=== PATIENT | male | born 1980 | race Caucasian/White ===

== ENCOUNTER 2018-10-19 08:13 | Inpatient (IN) | payer MEDICAID, OTHER ==
[2018-10-19] MEDS ORDERED: NORMAL SALINE 1000 ML 1,000 ML IV ONE (08:20)
[2018-10-19] MEDS ORDERED: LORAZEPAM INJ 2 MG/1 ML VIAL IV ONE ×3 (08:20→11:14)
--- NOTE | 2018-10-19 08:21 | ER Document Report ---
ED General - General Stated Complaint: ETOH Time Seen by Provider: 10/19/18 08:19 TRAVEL OUTSIDE OF THE [place] IN LAST 30 DAYS: No - HPI Patient complains to provider of: Alcohol withdrawal Notes: Alcoholic male presents from snf. Patient has not had an alcoholic drink in 3 to 4 days. Patient found to be diaphoretic tremulous speaking gibberish at present. Patient is still very confused not answering questions appropriately. Confabulating stories about flight and Parkinson's. Patient states he has been alcoholic for ever. Denies nausea vomiting chest pain cough fever. Non-reliable review of systems - Related Data Allergies/Adverse Reactions: No Known Allergies Allergy (Unverified 05/26/16 13:16) Past Medical History - Social History Smoking Status: Unknown if Ever Smoked Family History: Reviewed & Not Pertinent Psychiatric Medical History: Reports: Hx Anxiety, Hx Depression, Hx Post Traumatic Stress Disorder Review of Systems - Review of Systems -: Yes ROS unobtainable due to patient's medical condition Physical Exam - Vital signs Vitals: Resp Pulse Ox 17 97 10/19/18 08:51 10/19/18 08:51 - Notes Notes: PHYSICAL EXAMINATION: GENERAL: He was diaphoretic male, trembling ill-appearing HEAD: Atraumatic, normocephalic. EYES: Pupils equal round and reactive to light, extraocular movements intact, sclera anicteric, conjunctiva are normal. ENT: nares patent, oropharynx clear without exudates. Moist mucous membranes. NECK: Normal range of motion, supple without lymphadenopathy LUNGS: Breath sounds clear to auscultation bilaterally and equal. No wheezes rales or rhonchi. HEART: Tachycardia ABDOMEN: Soft, nontender, normoactive bowel sounds. No guarding, no rebound. No masses appreciated. EXTREMITIES: Normal range of motion, no pitting or edema. No cyanosis. NEUROLOGICAL: Cranial nerves grossly intact. Normal speech, normal gait. Normal sensory and motor exams. PSYCH: Intentional thought process SKIN: Warm, Dry, normal turgor, no rashes or lesions noted. Course - Re-evaluation Re-evalutation: 10/19/18 08:25 Ill-appearing 38-year-old male presents with concerning symptoms for delirium tremens including tangential thought process, alcohol withdrawal, tachycardia, diaphoresis, agitation 10/19/18 10:37 Patient received multiple rounds of IV Ativan therapy still agitated and tachycardic diaphoretic. Patient becomes very violent at one point. Initially was brought in by [facility]. Patient was released from their custody are saying they will not prescribe this time he is free to go. Patient requires restraints in the emergency department as he pulled out his IV. Of 10 mg of IV Ativan in the Patient will be admitted to the hospital for definitive management. - Vital Signs Vital signs: Temp Pulse Resp BP Pulse Ox 109 H 43 H 145/104 H 84 L 10/19/18 09:35 10/19/18 10:18 10/19/18 10:18 10/19/18 10:17 - Laboratory Result Diagrams: 10/19/18 08:37 10/19/18 08:37 Laboratory results interpreted by me: 10/19/18 08:37 RBC 3.80 L Hgb 13.4 L MCV 102 H MCH 35.2 H Plt Count 106 L Lymphocytes % 7.7 L Monocytes % 17.9 H Absolute Lymphocytes 0.3 L - EKG Interpretation by Il EKG shows normal: Sinus rhythm Rate: Tachycardia Rhythm: NSR Additional EKG results interpreted by me: 10/19/18 08:[address] elevations or depressions, no pathologic T wave inversions. Critical Care Note - Critical Care Note Total time excluding time spent on procedures (mins): 36 Comments: 8-year-old male presents with alcohol withdrawal. Patient given multiple IV dos es of Ativan as collating fashion total Ativan Apt. 10 milligrams IV. Patient is mildly improved no longer violent. Restraints will be removed from patient for transport Discharge - Discharge Clinical Impression: Delirium tremens Condition: Serious Disposition: ADMITTED INPATIENT Admitting Provider: Luana (Hospitalist) Unit Admitted: ICU
[2018-10-19 08:47] LABS: ABSOLUTE LYMPHOCYTES (AUTO) 0.3 10^3/uL (0.5-4.7); ABSOLUTE MONOCYTES (AUTO) 0.8 10^3/uL (0.1-1.4); ABSOLUTE NEUT (AUTO) 3.3 10^3/uL (1.7-8.2); BASOPHILS % (AUTO) 0.4 % (0-2); EOSINOPHILS % (AUTO) 0.2 % (0-6); HEMATOCRIT 38.7 % (37.9-51.0); HEMOGLOBIN 13.4 g/dL (13.5-17.0); LYMPHOCYTES % (AUTO) 7.7 % (13-45); MEAN CORPUSCULAR HEMOGLOBIN 35.2 pg (27.0-33.4); MEAN CORPUSCULAR HGB CONC 34.6 g/dL (32.0-36.0); MEAN CORPUSCULAR VOLUME 102 fl (80-97); MONOCYTES % (AUTO) 17.9 % (3-13); PLATELET COUNT 106 10^3/uL (150-450); RED CELL DISTRIBUTION WIDTH 13.7 % (11.5-14.0); SEGMENTED NEUTROPHILS % (AUTO) 73.8 % (42-78); TOTAL CELLS COUNTED % (AUTO) 100 %; WHITE BLOOD COUNT 4.4 10^3/uL (4.0-10.5)
[2018-10-19 09:06] LABS: ANION GAP 13 (5-19); BLOOD UREA NITROGEN 8 mg/dL (7-20); CALCIUM 9.9 mg/dL (8.4-10.2); CARBON DIOXIDE 26 mmol/L (22-30); CHLORIDE 100 mmol/L (98-107); GLUCOSE 87 mg/dL (75-110); POTASSIUM 3.7 mmol/L (3.6-5.0); SODIUM 138.8 mmol/L (137-145)
[2018-10-19 09:08] LABS: ALCOHOL < 10 mg/dL (NONE DETECTED)
[2018-10-19] MEDS: LORAZEPAM INJ 2 MG/1 ML VIAL IV ONE ×2 (09:19→09:46)
[2018-10-19] MEDS ORDERED: LORAZEPAM INJ 2 MG/1 ML VIAL IM ONE (09:30)
[2018-10-19 11:11] LABS: ALANINE AMINOTRANSFERASE 92 U/L (21-72); ALBUMIN 4.2 g/dL (3.5-5.0); ALKALINE PHOSPHATASE 36 U/L (38-126); ASPARTATE AMINO TRANSFERASE 89 U/L (17-59); BILIRUBIN,DIRECT 0.4 mg/dL (0.0-0.4); BILIRUBIN,TOTAL 1.2 mg/dL (0.2-1.3); TOTAL PROTEIN 6.8 g/dL (6.3-8.2)
[2018-10-19] MEDS: HALOPERIDOL LACTATE INJ 5 MG/1 ML VIAL IV PRN ×2 (11:14→15:37)
[2018-10-19] MEDS: NORMAL SALINE 1000 ML 1,000 ML IV PRN ×2 (11:24→23:20)
[2018-10-19] MEDS ORDERED: DEXTROSE 50%-WATER 25 GM/50 ML DISP.SYRIN IV PRN ×2 (12:03)
[2018-10-19] MEDS ORDERED: DEXTROSE 40% GEL 15 GM TUBE PO PRN ×2 (12:03)
[2018-10-19] MEDS ORDERED: GLUCAGON,HUMAN RECOMB 1 MG INJ SUBCUT PRN (12:03)
--- NOTE | 2018-10-19 12:58 | EKG REPORT ---
SEVERITY:- BORDERLINE ECG - SINUS TACHYCARDIA BORDERLINE PROLONGED QT INTERVAL : Confirmed by: Diego Ortez MD 19-Oct-2018 12:58:15
[2018-10-19] MEDS: DIAZEPAM INJ 10 MG/2 ML DISP.SYRIN IV SCH ×2 (13:15→17:41)
--- NOTE | 2018-10-19 13:33 | PDOC H&P ---
History of Present Illness Admission Date/PCP: 10/19/18 10:41 Patient complains of: agitation History of Present Illness: BABATUNDE EDGAR is a 38 year old male with chronic alcohol abuse who was brought in by EMS from [facility]. He has reportedly been there for 4 days and has not had a drink since then. He was noted to be diaphoretic, increasingly confused, tremulous and was having hallucinations and delusions. EMS gave him 2 mg of Ativan and he has had a few more doses in the ER. He was extremely agitated initially. On encounter, he is on 4 point restraint. He is awake, appears tremulous and is oriented x 0. He is less agitated now after another dose of Ativan and after giving him Haldol. Attempted to call emergency contact, Elizabeth Prather but unsuccessful. Past Medical History Psychiatric Medical History: Reports: Depression, Post Traumatic Stress Disorder Social History Smoking Status: Unknown if Ever Smoked Family History Family History: Reviewed & Not Pertinent Parental Family History Reviewed: No - altered Children Family History Reviewed: No Sibling(s) Family History Reviewed.: No Medication/Allergy Home Medications: Unobtainable 10/19/18 Allergies/Adverse Reactions: No Known Allergies Allergy (Unverified 05/26/16 13:16) Review of Systems ROS unobtainable: Due to mental status Physical Exam Vital Signs: Temp Pulse Resp BP Pulse Ox 112 H 43 H 145/104 H 84 L 10/19/18 10:00 10/19/18 10:18 10/19/18 10:18 10/19/18 10:17 General appearance: PRESENT: well-developed, other - agitated Eye exam: PRESENT: conjunctiva pink, EOMI, PERRLA. ABSENT: scleral icterus Ear exam: PRESENT: normal external ear exam Mouth exam: PRESENT: moist, tongue midline Neck exam: ABSENT: carotid bruit, JVD, lymphadenopathy, thyromegaly Respiratory exam: PRESENT: clear to auscultation ben. ABSENT: rales, rhonchi, wheezes Cardiovascular exam: PRESENT: RRR. ABSENT: diastolic murmur, rubs, systolic murmur Pulses: PRESENT: normal dorsalis pedis pul GI/Abdominal exam: PRESENT: normal bowel sounds, soft. ABSENT: distended, guarding, mass, organolmegaly, rebound, tenderness Rectal exam: PRESENT: deferred Neurological exam: PRESENT: altered, CN II-XII grossly intact. ABSENT: motor sensory deficit Psychiatric exam: PRESENT: agitated Results Laboratory Results: 10/19/18 08:37 10/19/18 08:37 10/19/18 10/19/18 08:37 08:37 WBC 4.4 RBC 3.80 L Hgb 13.4 L Hct 38.7 MCV 102 H MCH 35.2 H MCHC 34.6 RDW 13.7 Plt Count 106 L Seg Neutrophils % 73.8 Lymphocytes % 7.7 L Monocytes % 17.9 H Eosinophils % 0.2 Basophils % 0.4 Absolute Neutrophils 3.3 Absolute Lymphocytes 0.3 L Absolute Monocytes 0.8 Absolute Eosinophils 0.0 Absolute Basophils 0.0 Sodium 138.8 Potassium 3.7 Chloride 100 Carbon Dioxide 26 Anion Gap 13 BUN 8 Creatinine 0.86 Est GFR ( Amer) > 60 Est GFR (Non-Af Amer) > 60 Glucose 87 Calcium 9.9 Assessment and Plan - Diagnosis (1) Acute encephalopathy Is this a current diagnosis for this admission?: Yes Plan: Currently maintaining airway. Will be placed in ICU for close monitoring, extreme agitation and possible need for escalation of sedation. Continue Ativan. Will add Haldol. Will consider Ativan drip and airway support with intubation if he continues to have worsening agitation. (2) Delirium tremens Is this a current diagnosis for this admission?: Yes Plan: In severe alcohol withdrawal. Start banana bag. [facility] protocol. - Time Time Spent with patient: 25-34 minutes
[2018-10-19 14:46] LABS: FOLATE 16.5 ng/mL (>2.76)
[2018-10-19 15:48] LABS: APPEARANCE,URINE CLEAR; BILIRUBIN,URINE NEGATIVE (NEGATIVE); COLOR,URINE YELLOW; GLUCOSE, URINE NEGATIVE (NEGATIVE); KETONES,URINE 80 mg/dL (NEGATIVE); LEUKOCYTE ESTERASE,URINE NEGATIVE (NEGATIVE); NITRITE,URINE NEGATIVE (NEGATIVE); PROTEIN,URINE NEGATIVE (NEGATIVE); URINE SPECIFIC GRAVITY 1.018; UROBILINOGEN,URINE NEGATIVE mg/dL (<2.0)
[2018-10-19 16:04] LABS: URINE AMPHETAMINES SCREEN NEGATIVE; URINE BARBITURATES SCREEN NEGATIVE; URINE BENZODIAZEPINES SCREEN NEGATIVE; URINE COCAINE SCREEN NEGATIVE; URINE MARIJUANA (THC) SCREEN NEGATIVE; URINE METHADONE SCREEN NEGATIVE; URINE PHENCYCLIDINE SCREEN NEGATIVE
[2018-10-19] MEDS ORDERED: NORMAL SALINE 1000 ML 1,000 ML with POTASSIUM CHLORIDE 20 MEQ, MAGNESIUM SULFATE 8 MEQ,... IV SCH ×5 (18:00)
[2018-10-19] MEDS: LORAZEPAM INJ 2 MG/1 ML VIAL IV PRN ×2 (19:39→22:32)
[2018-10-19] MEDS ORDERED: HEPARIN SOD (PORCINE) 5,000 UNIT/ML 1 ML SYRINGE SUBCUT SCH (22:00)
[2018-10-19] MEDS: FAMOTIDINE INJ/PF 20 MG/2 ML SDV IV SCH (22:33)
[2018-10-20] MEDS: DIAZEPAM INJ 10 MG/2 ML DISP.SYRIN IV SCH ×5 (00:58→23:33)
[2018-10-20] MEDS: NORMAL SALINE 1000 ML 1,000 ML IV PRN ×2 (11:05→19:25)
[2018-10-20] MEDS: FONDAPARINUX SODIUM INJ 2.5 MG/0.5 ML DISP.SYRIN SUBCUT SCH (11:06)
[2018-10-20] MEDS: FAMOTIDINE INJ/PF 20 MG/2 ML SDV IV SCH ×2 (11:06→21:34)
[2018-10-20] MEDS ORDERED: LORAZEPAM INJ 2 MG/1 ML VIAL IV PRN (13:30)
--- NOTE | 2018-10-20 13:36 | PDOC PROGRESS REPORT ---
Subjective Progress Note for:: 10/20/18 Subjective:: Patient is resting comfortably this morning. He does not appear agitated. He reports feeling better. He is thirsty. Reason For Visit: ACUTE ENCEPHALOPATHY, ALCOHOL WITHDRAWAL Physical Exam Vital Signs: Temp Pulse Resp BP Pulse Ox 99.0 F 103 H 16 101/74 98 10/20/18 12:00 10/20/18 12:00 10/20/18 12:00 10/20/18 12:00 10/20/18 12:00 Intake & Output 10/19/18 10/20/18 10/21/18 06:59 06:59 06:59 Intake Total 1999 2022 Output Total 2039 900 Balance -40 1123 Weight 81.2 kg General appearance: PRESENT: no acute distress, cooperative, well-developed Head exam: PRESENT: atraumatic, normocephalic Respiratory exam: PRESENT: clear to auscultation ben, symmetrical, unlabored. ABSENT: accessory muscle use, rales, rhonchi, tachypnea, wheezes Cardiovascular exam: PRESENT: RRR, +S1, +S2. ABSENT: diastolic murmur, gallop, rubs, systolic murmur GI/Abdominal exam: PRESENT: normal bowel sounds, soft. ABSENT: distended, tenderness Rectal exam: PRESENT: deferred Extremities exam: ABSENT: calf tenderness, pedal edema Neurological exam: PRESENT: alert, awake, oriented to person, oriented to place, oriented to time, oriented to situation, CN II-XII grossly intact. ABSENT: motor sensory deficit Psychiatric exam: PRESENT: flat affect. ABSENT: agitated, anxious Focused psych exam: ABSENT: delusional, restlessness Skin exam: PRESENT: dry, warm. ABSENT: rash Results Laboratory Results: 10/19/18 08:37 10/19/18 08:37 10/19/18 10/19/18 13:11 15:36 Vitamin B12 844.0 Folate 16.50 Urine Color YELLOW Urine Appearance CLEAR Urine pH 5.0 Ur Specific [place] 1.018 Urine Protein NEGATIVE Urine Glucose (UA) NEGATIVE Urine Ketones 80 H Urine Blood SMALL H Urine Nitrite NEGATIVE Ur Leukocyte Esterase NEGATIVE Urine WBC (Auto) 1 Urine RBC (Auto) 0 Assessment and Plan - Diagnosis (1) Acute encephalopathy Is this a current diagnosis for this admission?: Yes Plan: Currently maintaining airway. Will be placed in ICU for close monitoring, extreme agitation and possible need for escalation of sedation. Continue Ativan. Will add Haldol. Will consider Ativan drip and airway support with intubation if he continues to have worsening agitation. 10/20/2018-the patient is awake alert and oriented. The encephalopathy was likely due to alcohol. This has resolved. Now that the encephalopathy has resolved I will start him on an oral diet. He did pass a bedside swallow exam. (2) Delirium tremens Is this a current diagnosis for this admission?: Yes Plan: In severe alcohol withdrawal. Start banana bag. CIWA protocol. 10/20/2018-benzodiazepine therapy available. He is not tremulous or agitated at this time. Continue as needed medications. We will likely be able to trial him off of restraints. (3) Elevated transaminase level Is this a current diagnosis for this admission?: Yes Plan: 10/20/2018-enzymes slightly elevated. This is likely from alcohol use. They should resolve. We will check enzyme levels tomorrow. - Time Time Spent with patient: 15-24 minutes Medications reviewed and adjusted accordingly: Yes Anticipated discharge: Home
[2018-10-20] MEDS ORDERED: NORMAL SALINE 500 ML IV ONE (15:30)
[2018-10-20] MEDS: FOLIC ACID/VITAMIN B COMP W-C CAPSULE PO SCH (17:26)
[2018-10-21] MEDS: NORMAL SALINE 1000 ML 1,000 ML IV PRN ×3 (03:33→21:15)
[2018-10-21] MEDS: DIAZEPAM INJ 10 MG/2 ML DISP.SYRIN IV SCH ×4 (05:15→23:40)
[2018-10-21 07:21] LABS: ALANINE AMINOTRANSFERASE 72 U/L (21-72); ALBUMIN 3.8 g/dL (3.5-5.0); ALKALINE PHOSPHATASE 34 U/L (38-126); ANION GAP 14 (5-19); ASPARTATE AMINO TRANSFERASE 111 U/L (17-59); BILIRUBIN,DIRECT 0.3 mg/dL (0.0-0.4); BLOOD UREA NITROGEN 4 mg/dL (7-20); CALCIUM 9.2 mg/dL (8.4-10.2); CARBON DIOXIDE 16 mmol/L (22-30); CHLORIDE 109 mmol/L (98-107); GLUCOSE 74 mg/dL (75-110); POTASSIUM 3.7 mmol/L (3.6-5.0); SODIUM 139.4 mmol/L (137-145); TOTAL PROTEIN 6.3 g/dL (6.3-8.2)
[2018-10-21] MEDS: FONDAPARINUX SODIUM INJ 2.5 MG/0.5 ML DISP.SYRIN SUBCUT SCH (10:12)
[2018-10-21] MEDS: THIAMINE HCL 100 MG TABLET PO SCH (10:12)
[2018-10-21] MEDS: FAMOTIDINE INJ/PF 20 MG/2 ML SDV IV SCH ×2 (10:12→22:29)
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
--- NOTE | 2018-10-21 13:40 | PDOC PROGRESS REPORT ---
Subjective Progress Note for:: 10/21/18 Subjective:: BABATUNDE EDGAR is a 38 year old male with chronic alcohol abuse who was brought in by EMS from [facility]. He has reportedly been there for 4 days and has not had a drink since then. He was noted to be diaphoretic, increasingly confused, tremulous and was having hallucinations and delusions. EMS gave him 2 mg of Ativan and he has had a few more doses in the ER. He was extremely agitated initially. On encounter, he is on 4 point restraint. He is awake, appears tremulous and is oriented x 0. 10/21/2018. No acute events overnight, alert oriented x4, very pleasant and cooperative with physical examination, denies any visual or auditory hallucination, formication. 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 SBP 08793, T-max 97.0 pulse 47389, RR 1622, SPO2 100% RA, Reason For Visit: ACUTE ENCEPHALOPATHY, ALCOHOL WITHDRAWAL Physical Exam Vital Signs: Temp Pulse Resp BP Pulse Ox 98.8 F 94 16 113/76 100 10/21/18 00:00 10/21/18 03:42 10/21/18 00:00 10/21/18 00:00 10/21/18 00:00 Intake & Output 10/20/18 10/21/18 10/22/18 06:59 06:59 06:59 Intake Total 1999 4673 1000 Output Total 2040 1250 Balance -40 3423 1000 Weight 81.2 kg 82.3 kg General appearance: PRESENT: no acute distress, well-developed, well-nourished Head exam: PRESENT: atraumatic, normocephalic Neck exam: ABSENT: carotid bruit, JVD, lymphadenopathy, thyromegaly Respiratory exam: PRESENT: clear to auscultation ben. ABSENT: rales, rhonchi, wheezes Cardiovascular exam: PRESENT: RRR. ABSENT: diastolic murmur, rubs, systolic murmur GI/Abdominal exam: PRESENT: normal bowel sounds, soft. ABSENT: distended, guarding, mass, organolmegaly, rebound, tenderness Extremities exam: PRESENT: full ROM. ABSENT: calf tenderness, clubbing, pedal edema Neurological exam: PRESENT: alert, awake, oriented to person, oriented to place, oriented to time, oriented to situation, abnormal gait, CN II-XII grossly intact. ABSENT: motor sensory deficit Psychiatric exam: PRESENT: anxious Results Laboratory Results: 10/19/18 08:37 10/21/18 06:48 10/21/18 06:48 Sodium 139.4 Potassium 3.7 Chloride 109 H Carbon Dioxide 16 L Anion Gap 14 BUN 4 L Creatinine 0.62 Est GFR ( Amer) > 60 Est GFR (Non-Af Amer) > 60 Glucose 74 L Calcium 9.2 Total Bilirubin 1.0 AST 111 H ALT 72 Alkaline Phosphatase 34 L Total Protein 6.3 Albumin 3.8 Assessment and Plan - Diagnosis (1) Delirium tremens Is this a current diagnosis for this admission?: Yes Plan: Improving. CIWAS Score 13. Continue scheduled diazepam, PRN Ativan, folic acid, thiamine. Wean off of benzos when possible. Monitor for DT. Psychiatry has been consulted, recommendation has been noted. (2) Depression Qualifiers: Depression Type: major depressive disorder Is this a current diagnosis for this admission?: No Plan: Denies any suicidal, homicidal or self-harm ideation. Restart home meds. Been evaluated and cleared by psychiatry. (3) Anxiety Is this a current diagnosis for this admission?: No Plan: Continue benzos. Buspirone 5 mg p.o. twice daily as per psych recommendation. (4) Acute encephalopathy Is this a current diagnosis for this admission?: Yes Plan: Metabolic encephalopathy due to alcohol intoxication. Off restraints, CIWAS score of 13. Alert and oriented x4. As per #1. (5) Elevated transaminase level Is this a current diagnosis for this admission?: Yes Plan: Due to EtOH abuse. Improving. Platelets, albumin within normal limits. Will order hepatitis panel to rule out infectious hepatitis.
[2018-10-21] MEDS: FOLIC ACID/VITAMIN B COMP W-C CAPSULE PO SCH (16:23)
[2018-10-21] MEDS: VENLAFAXINE HCL 37.5 MG CAP.SR.24H PO SCH (22:29)
[2018-10-21] MEDS: BUSPIRONE HCL 10 MG TABLET PO SCH (22:29)
[2018-10-22] MEDS: NORMAL SALINE 1000 ML 1,000 ML IV PRN ×2 (05:15→23:37)
[2018-10-22] MEDS: DIAZEPAM INJ 10 MG/2 ML DISP.SYRIN IV SCH (05:55)
[2018-10-22 06:37] LABS: HEPATITIS A AB IGM Negative (Negative); HEPATITIS B CORE AB IGM Negative (Negative); HEPATITS B SURFACE ANTIGEN Negative (Negative)
[2018-10-22 07:09] LABS: HEPATITIS C VIRUS ANTIBODY <0.1 s/co ratio (0.0-0.9)
[2018-10-22] MEDS: FAMOTIDINE INJ/PF 20 MG/2 ML SDV IV SCH (09:08)
[2018-10-22] MEDS: VENLAFAXINE HCL 37.5 MG CAP.SR.24H PO SCH ×2 (09:09→21:59)
[2018-10-22] MEDS: FONDAPARINUX SODIUM INJ 2.5 MG/0.5 ML DISP.SYRIN SUBCUT SCH (09:09)
[2018-10-22] MEDS: THIAMINE HCL 100 MG TABLET PO SCH (09:09)
[2018-10-22] MEDS: BUSPIRONE HCL 10 MG TABLET PO SCH ×2 (09:09→21:58)
[2018-10-22] MEDS ORDERED: LORAZEPAM INJ 2 MG/1 ML VIAL IV PRN (09:20)
--- NOTE | 2018-10-22 13:18 | PDOC PROGRESS REPORT ---
Subjective Progress Note for:: 10/22/18 Subjective:: BABATUNDE EDGAR is a 38 year old male with chronic alcohol abuse who was brought in by EMS from [facility]. He has reportedly been there for 4 days and has not had a drink since then. He was noted to be diaphoretic, increasingly confused, tremulous and was having hallucinations and delusions. EMS gave him 2 mg of Ativan and he has had a few more doses in the ER. He was extremely agitated initially. On encounter, he is on 4 point restraint. He is awake, appears tremulous and is oriented x 0. 10/21/2018. No acute events overnight, alert oriented x4, very pleasant and cooperative with physical examination, denies any visual or auditory hallucination, formication. 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 SBP 89265, T-max 97.0 pulse 05169, RR 1622, SPO2 100% RA, 10/22/2018. No acute events overnight. Alert oriented x4. Denies any hallucinations, formication, anxiety, visible improvement of tremors, ambulatory, p.o. tolerant, having normal bowel and bladder movements. Patient is still on high doses of benzos, will DC scheduled benzos, continue as needed Ativan. Plan is to discharge home tomorrow. Reason For Visit: ACUTE ENCEPHALOPATHY, ALCOHOL WITHDRAWAL Physical Exam Vital Signs: Temp Pulse Resp BP Pulse Ox 98.8 F 72 16 120/65 93 10/21/18 23:49 10/21/18 23:49 10/21/18 23:49 10/21/18 23:49 10/21/18 23:49 Intake & Output 10/21/18 10/22/18 10/23/18 06:59 06:59 06:59 Intake Total 4673 4900 Output Total 1250 Balance 3423 4900 Weight 82.3 kg 83.2 kg General appearance: PRESENT: no acute distress, well-developed, well-nourished Respiratory exam: PRESENT: clear to auscultation ben. ABSENT: rales, rhonchi, wheezes Cardiovascular exam: PRESENT: RRR. ABSENT: diastolic murmur, rubs, systolic murmur GI/Abdominal exam: PRESENT: normal bowel sounds, soft. ABSENT: distended, guarding, mass, organolmegaly, rebound, tenderness Neurological exam: PRESENT: alert, awake, oriented to person, oriented to place, oriented to time, oriented to situation, CN II-XII grossly intact. ABSENT: motor sensory deficit Results Laboratory Results: 10/19/18 08:37 10/21/18 06:48 Assessment and Plan - Diagnosis (1) Delirium tremens Is this a current diagnosis for this admission?: Yes Plan: Improving. CIWAS Score 13. Continue scheduled diazepam, PRN Ativan, folic acid, thiamine. Wean off of benzos when possible. Monitor for DT. Psychiatry has been consulted, recommendation has been noted. (2) Depression Qualifiers: Depression Type: major depressive disorder Is this a current diagnosis for this admission?: No Plan: Denies any suicidal, homicidal or self-harm ideation. Started on venlafaxine per psychiatry recommendations. Outpatient psychiatry follow-up. (3) Anxiety Is this a current diagnosis for this admission?: No Plan: Continue benzos. Wean off if possible. Buspirone 5 mg p.o. twice daily as per psych recommendation. (4) Acute encephalopathy Is this a current diagnosis for this admission?: Yes Plan: Metabolic encephalopathy due to alcohol intoxication. Off of restraints, CIWAS score of 13. Alert and oriented x4. As per #1. (5) Elevated transaminase level Is this a current diagnosis for this admission?: Yes Plan: Due to EtOH abuse. Improving. Platelets, albumin within normal limits. Hepatitis panel negative. Avoid hepatotoxic meds.
[2018-10-22] MEDS: FOLIC ACID/VITAMIN B COMP W-C CAPSULE PO SCH (18:09)
[2018-10-22] MEDS: FAMOTIDINE 20 MG TABLET PO SCH (21:58)
[2018-10-23] MEDS: THIAMINE HCL 100 MG TABLET PO SCH (10:08)
[2018-10-23] MEDS: FONDAPARINUX SODIUM INJ 2.5 MG/0.5 ML DISP.SYRIN SUBCUT SCH (10:08)
[2018-10-23] MEDS: FAMOTIDINE 20 MG TABLET PO SCH (10:08)
[2018-10-23] MEDS: VENLAFAXINE HCL 37.5 MG CAP.SR.24H PO SCH (10:08)
[2018-10-23] MEDS: BUSPIRONE HCL 10 MG TABLET PO SCH (10:08)
[2018-10-23 11:18] VITALS: BP 147/98
== END 2018-10-23 11:36 | disposition home or self-care (01) | DRG 897 ==
LOC: ER 08:13 → EH 10:41 → ICU 15:18 → 5 10-20 16:47
PROVIDERS: ADMIT Internal Medicine; ATTEND Internal Medicine
DX: F10.231 Alcohol dependence with withdrawal delirium (principal); G93.49 Other encephalopathy; F43.10 Post-traumatic stress disorder, unspecified; F41.8 Other specified anxiety disorders; R74.0 Nonspecific elevation of levels of transaminase and lactic acid dehydrogenase [LDH]; Y90.0 Blood alcohol level of less than 20 mg/100 ml
CPT/HCPCS: 36415; 80048; 80053; 80074; 80076; 80307; 81001; 82607; 82746; 83735; 85025; 87040; 93005; 93010; 96361; 96372; 96374; 99291; J1630; J1652; J2060; J3360; J3411; J3475; J3480; J3490; J7030; J7040; S0028

== ENCOUNTER 2018-10-30 19:37 | Emergency (ER) | payer MEDICAID ==
[2018-10-30] MEDS ORDERED: NORMAL SALINE 1000 ML 1,000 ML IV ONE (20:01)
[2018-10-30 20:23] LABS: ABSOLUTE BASOPHILS # (AUTO) 0.1 10^3/uL (0.0-0.2); ABSOLUTE LYMPHOCYTES (AUTO) 0.8 10^3/uL (0.5-4.7); ABSOLUTE MONOCYTES (AUTO) 0.8 10^3/uL (0.1-1.4); ABSOLUTE NEUT (AUTO) 3.7 10^3/uL (1.7-8.2); BASOPHILS % (AUTO) 1.2 % (0-2); EOSINOPHILS % (AUTO) 0.6 % (0-6); HEMOGLOBIN 14.2 g/dL (13.5-17.0); LYMPHOCYTES % (AUTO) 15.5 % (13-45); MEAN CORPUSCULAR HGB CONC 33.8 g/dL (32.0-36.0); MEAN CORPUSCULAR VOLUME 104 fl (80-97); MONOCYTES % (AUTO) 14.3 % (3-13); PLATELET COUNT 463 10^3/uL (150-450); RED BLOOD COUNT 4.05 10^6/uL (4.35-5.55); RED CELL DISTRIBUTION WIDTH 13.3 % (11.5-14.0); SEGMENTED NEUTROPHILS % (AUTO) 68.4 % (42-78); TOTAL CELLS COUNTED % (AUTO) 100 %; WHITE BLOOD COUNT 5.4 10^3/uL (4.0-10.5)
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
[2018-10-30 20:34] LABS: INTERNATIONAL RATION (INR) 0.91; PROTHROMBIN TIME 12.7 SEC (11.4-15.4)
[2018-10-30 20:45] LABS: ALANINE AMINOTRANSFERASE 63 U/L (21-72); ALBUMIN 4.5 g/dL (3.5-5.0); ALCOHOL 174 mg/dL (NONE DETECTED); ALKALINE PHOSPHATASE 55 U/L (38-126); ANION GAP 17 (5-19); ASPARTATE AMINO TRANSFERASE 99 U/L (17-59); BILIRUBIN,DIRECT 0.3 mg/dL (0.0-0.4); BILIRUBIN,TOTAL 0.5 mg/dL (0.2-1.3); BLOOD UREA NITROGEN 6 mg/dL (7-20); CALCIUM 9.4 mg/dL (8.4-10.2); CARBON DIOXIDE 24 mmol/L (22-30); CHLORIDE 103 mmol/L (98-107); GLUCOSE 80 mg/dL (75-110); POTASSIUM 4.5 mmol/L (3.6-5.0); SODIUM 143.6 mmol/L (137-145)
[2018-10-30 20:51] LABS: ACETAMINOPHEN < 10 ug/mL (10-30); SALICYLATE < 1.0 mg/dL (2.0-20.0)
[2018-10-30 21:47] LABS: APPEARANCE,URINE CLEAR; BILIRUBIN,URINE NEGATIVE (NEGATIVE); COLOR,URINE YELLOW; GLUCOSE, URINE NEGATIVE (NEGATIVE); KETONES,URINE TRACE mg/dL (NEGATIVE); LEUKOCYTE ESTERASE,URINE NEGATIVE (NEGATIVE); NITRITE,URINE NEGATIVE (NEGATIVE); PROTEIN,URINE NEGATIVE (NEGATIVE); URINE SPECIFIC GRAVITY 1.016; UROBILINOGEN,URINE NEGATIVE mg/dL (<2.0)
[2018-10-30 22:01] LABS: URINE AMPHETAMINES SCREEN NEGATIVE; URINE BARBITURATES SCREEN NEGATIVE; URINE BENZODIAZEPINES SCREEN UNCONFIRMED POSITIVE; URINE COCAINE SCREEN NEGATIVE; URINE MARIJUANA (THC) SCREEN NEGATIVE; URINE METHADONE SCREEN NEGATIVE; URINE PHENCYCLIDINE SCREEN NEGATIVE
--- NOTE | 2018-10-30 22:31 | EKG REPORT ---
SEVERITY:- NORMAL ECG - SINUS RHYTHM : Confirmed by: Zeyad Fleming 30-Oct-2018 22:30:08
--- NOTE | 2018-10-30 22:32 | ER Document Report ---
ED General - General TRAVEL OUTSIDE OF THE [place]. IN LAST 30 DAYS: No <LILLI GATES - Last Filed: 10/30/18 22:27> <MEJIA TEE - Last Filed: 10/30/18 23:17> - General Chief Complaint: Probable Seizure Stated Complaint: ALCOHOL WITHDRAWAL Time Seen by Provider: 10/30/18 19:53 - HPI Notes: Patient is a 38-year-old gentleman with an extensive psychiatric history as well as history of alcohol dependence and withdrawal who presents to the emergency department for evaluation. He states he had 4 seizures. He has no history of seizures. The patient states he was shaking all over. When I asked him about remembering them, he states "of course I remember them." He states he was able to talk, see, and control his movements somewhat during these episodes. There is no postictal. He was not incontinent. Did not bite his tongue. He was recently discharged from the hospital for potential delirium tremens. He states he was trying to avoid alcohol, but states he "may be had 2 drinks" today in an effort to hold off any alcohol withdrawal. He denies any suicidal or homicidal ideation. Denies any visual or auditory hallucination. He denies the use of an y other illicit substances. (LILLI GATES) - Related Data Allergies/Adverse Reactions: No Known Allergies Allergy (Unverified 05/26/16 13:16) Past Medical History - General Information source: Patient - Social History Smoking Status: Never Smoker Chew tobacco use (# tins/day): Yes Frequency of alcohol use: Heavy Drug Abuse: None Family History: Reviewed & Not Pertinent Patient has suicidal ideation: No Patient has homicidal ideation: No Renal/ Medical History: Denies: Hx Peritoneal Dialysis Psychiatric Medical History: Reports: Hx Anxiety, Hx Depression, Hx Post Traumatic Stress Disorder <LILLI GATES - Last Filed: 10/30/18 22:27> Review of Systems - Review of Systems Constitutional: See HPI EENT: No symptoms reported Cardiovascular: No symptoms reported Respiratory: No symptoms reported Gastrointestinal: No symptoms reported Genitourinary: No symptoms reported Male Genitourinary: No symptoms reported Musculoskeletal: No symptoms reported Skin: No symptoms reported Neurological/Psychological: No symptoms reported <LILLI GATES - Last Filed: 10/30/18 22:27> Physical Exam <LILLI GATES - Last Filed: 10/30/18 22:27> - Vital signs Vitals: Resp BP Pulse Ox 13 138/81 H 97 10/30/18 19:54 10/30/18 19:54 10/30/18 19:54 - Notes Notes: This is a 38-year-old male who appears stated age in no acute distress. Vital signs reviewed, please refer to chart. Head is normocephalic, atraumatic. Pupils equal round, reactive to light. Neck is supple without meningismus. Heart is regular rate and rhythm. Lungs are clear to auscultation bilaterally. Abdomen is soft, nontender, normoactive bowel sounds throughout. Extremities without cyanosis, clubbing. Posterior calves are nontender. Peripheral pulses are equal. Skin is warm and dry. He does have multiple ecchymoses and some superficial abrasions to bilateral upper and lower extremities. Patient is awake, alert, neurological exam is nonfocal. He does have very mild tremors that can be felt but not seen. (LILLI GATES) Course - Laboratory Result Diagrams: 10/30/18 19:20 10/30/18 19:20 - Diagnostic Test Radiology reviewed: Reports reviewed <LILLI GATES - Last Filed: 10/30/18 22:27> - Laboratory Result Diagrams: 10/30/18 19:20 10/30/18 19:20 <MEJIA TEE - Last Filed: 10/30/18 23:17> - Re-evaluation Re-evalutation: 10/30/18 22:30 Patient presents emergency department for evaluation. He states he has been having seizures. Certainly his description was not of typical grand mal seizures. He has no signs of tongue trauma. He was not incontinent. He is not postictal. He was awake and alert during these seizures. It is more likely at this point that the patient is having pseudoseizures. He did not have any further abnormal neurological events while here in the emergency department. Laboratory investigations were obtained. Patient has a blood alcohol of 174. Certainly he is not in significant alcohol withdrawal at that number at this time, particularly since he underwent inpatient detox here in the hospital recently. His tox screen was positive for benzodiazepines. A CT scan was unremarkable. At this point, patient's CIWA scale is 5. I do not believe he warrants any further medications, and certainly he seems to be drinking heavily despite his recent detoxification. I encouraged the patient to continue his efforts to stop drinking alcohol. Otherwise he is stable for discharge. 10/30/18 22:32 (LILLI GATES) 10/30/18 23:14 At time of discharge patient is having some slight tremors. The nurse appropriately wanted me to be aware of this. I did reassess patient. Heart rate is normal. Patient says he does not really feel like he is going into full withdrawal however he does admit that he has some very slight tremor. He does drink alcoholic on a regular basis therefore he says he had 2 beers before coming in just to help prevent withdrawal. On exam he does have a mild tremor. He is acting appropriately and is answering questions appropriately. I will give him a small dose of Ativan to help cover him until he goes home. I informed him that he should still continue to drink small amounts of alcohol but not drink to get drunk. This is to help prevent further withdrawal until he can completely stop drinking alcohol altogether. I encouraged him to have a low threshold to return to the ER if he feels as if he is having worsening tremors, or if he has recurrent seizures, or if he feels he is worsening in any way. Patient agrees with plan and will be discharged home. Patient does have a ride home and will not be driving. Dictation of this chart was performed using voice recognition software; t herefore, there may be some unintended grammatical errors. (MEJIA TEE) - Vital Signs Vital signs: Temp Pulse Resp BP Pulse Ox 21 H 134/75 H 97 10/30/18 23:00 10/30/18 23:00 10/30/18 21:00 - Laboratory Laboratory results interpreted by me: 10/30/18 10/30/18 10/30/18 19:20 19:20 21:20 RBC 4.05 L MCV 104 H MCH 35.0 H Plt Count 463 H Monocytes % 14.3 H BUN 6 L AST 99 H Urine Ketones TRACE H Salicylates < 1.0 L Acetaminophen < 10 L - Diagnostic Test Radiology results interpreted by me: 10/30/18 22:[address] 10/30/18 20:01 IMPRESSION: No acute intracranial abnormality. TECHNICAL DOCUMENTATION: Quality ID # 436: Final reports with documentation of one or more dose reduction techniques (e.g., Automated exposure control, adjustment of the mA and/or kV according to patient size, use of iterative reconstruction technique) copyright 2011 [employer]- All Rights Reserved (LILLI GATES) - EKG Interpretation by Me Additional EKG results interpreted by me: 10/30/18 22:33 Normal sinus mechanism with a rate of 92 bpm. Normal axis and intervals, no acute ST changes concerning for ischemia or infarction. (LILLI GATES) Discharge <LILLI GATES - Last Filed: 10/30/18 22:27> <MEJIA TEE - Last Filed: 10/30/18 23:17> - Discharge Clinical Impression: Alcohol abuse with physiological dependence Condition: Stable Disposition: HOME, SELF-CARE Instructions: Acute Alcohol Intoxication ([facility]), Chronic Alcoholism ([facility]) Additional Instructions: No clear reason was found for the episode you endured this evening. You should continue your efforts to abstain from alcohol. Follow-up with primary care next week. Return to the emergency department with worsening or new concerning symptoms of any sort.
[2018-10-30 23:11] VITALS: BP 134/75
[2018-10-30] MEDS ORDERED: LORAZEPAM 1 MG TABLET PO ONE (23:13)
== END 2018-10-30 23:25 | disposition home or self-care (01) ==
LOC: ER 19:37
DX: F10.20 Alcohol dependence, uncomplicated (principal); R56.9 Unspecified convulsions
CPT/HCPCS: 93005; 99285; 96360; 96361; 36415; 80307 ×4; 85025; 85610; 80053; 81001; 70450; 93010; J7030

== ENCOUNTER 2018-10-31 17:05 | Emergency (ER) | payer OTHER, MEDICAID ==
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
[2018-10-31] MEDS ORDERED: IBUPROFEN 800 MG TABLET PO ONE (19:45)
[2018-10-31] MEDS ORDERED: DIPH/PERTUSS(ACELL)/TETANUS VAC/PF 0.5 ML SYR (>=10YO) IM ONE (19:45)
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
[2018-10-31 20:04] VITALS: BP 146/90
== END 2018-10-31 20:08 | disposition home or self-care (01) ==
LOC: ER 17:05
DX: S89.90XA Unspecified injury of unspecified lower leg, initial encounter (principal); R07.9 Chest pain, unspecified; M25.572 Pain in left ankle and joints of left foot; M25.561 Pain in right knee; M25.562 Pain in left knee; M54.2 Cervicalgia; R51 Headache; V89.2XXA Person injured in unspecified motor-vehicle accident, traffic, initial encounter
CPT/HCPCS: 99284; 90471; 73610; 71046; 73560; 70450; 72125; 90715; L0120

== ENCOUNTER 2018-11-06 16:11 | Emergency (ER) | payer MEDICAID, OTHER ==
[2018-11-06 17:06] LABS: ABSOLUTE EOSINOPHILS # (AUTO) 0.1 10^3/uL (0.0-0.6); ABSOLUTE LYMPHOCYTES (AUTO) 0.5 10^3/uL (0.5-4.7); ABSOLUTE MONOCYTES (AUTO) 0.7 10^3/uL (0.1-1.4); ABSOLUTE NEUT (AUTO) 3.9 10^3/uL (1.7-8.2); BASOPHILS % (AUTO) 0.8 % (0-2); EOSINOPHILS % (AUTO) 1.3 % (0-6); HEMATOCRIT 37.6 % (37.9-51.0); HEMOGLOBIN 12.6 g/dL (13.5-17.0); LYMPHOCYTES % (AUTO) 8.9 % (13-45); MEAN CORPUSCULAR HEMOGLOBIN 35.1 pg (27.0-33.4); MEAN CORPUSCULAR HGB CONC 33.6 g/dL (32.0-36.0); MEAN CORPUSCULAR VOLUME 104 fl (80-97); MONOCYTES % (AUTO) 13.6 % (3-13); PLATELET COUNT 199 10^3/uL (150-450); RED CELL DISTRIBUTION WIDTH 13.2 % (11.5-14.0); SEGMENTED NEUTROPHILS % (AUTO) 75.4 % (42-78); TOTAL CELLS COUNTED % (AUTO) 100 %; WHITE BLOOD COUNT 5.2 10^3/uL (4.0-10.5)
[2018-11-06 17:12] LABS: APPEARANCE,URINE CLEAR; BILIRUBIN,URINE NEGATIVE (NEGATIVE); COLOR,URINE YELLOW; GLUCOSE, URINE NEGATIVE (NEGATIVE); KETONES,URINE 20 mg/dL (NEGATIVE); LEUKOCYTE ESTERASE,URINE NEGATIVE (NEGATIVE); NITRITE,URINE NEGATIVE (NEGATIVE); PROTEIN,URINE NEGATIVE (NEGATIVE); URINE SPECIFIC GRAVITY 1.013; UROBILINOGEN,URINE NEGATIVE mg/dL (<2.0)
[2018-11-06 17:24] LABS: URINE AMPHETAMINES SCREEN NEGATIVE; URINE BARBITURATES SCREEN NEGATIVE; URINE BENZODIAZEPINES SCREEN UNCONFIRMED POSITIVE; URINE COCAINE SCREEN NEGATIVE; URINE MARIJUANA (THC) SCREEN NEGATIVE; URINE METHADONE SCREEN NEGATIVE; URINE PHENCYCLIDINE SCREEN NEGATIVE
[2018-11-06 17:24] LABS: ALANINE AMINOTRANSFERASE 42 U/L (21-72); ALBUMIN 4.1 g/dL (3.5-5.0); ALKALINE PHOSPHATASE 41 U/L (38-126); ANION GAP 12 (5-19); ASPARTATE AMINO TRANSFERASE 112 U/L (17-59); BILIRUBIN,DIRECT 0.4 mg/dL (0.0-0.4); BILIRUBIN,TOTAL 0.9 mg/dL (0.2-1.3); BLOOD UREA NITROGEN 9 mg/dL (7-20); CALCIUM 9.4 mg/dL (8.4-10.2); CARBON DIOXIDE 23 mmol/L (22-30); CHLORIDE 106 mmol/L (98-107); GLUCOSE 77 mg/dL (75-110); POTASSIUM 4.4 mmol/L (3.6-5.0); SODIUM 141.3 mmol/L (137-145); TOTAL PROTEIN 6.7 g/dL (6.3-8.2)
[2018-11-06 17:34] LABS: ACETAMINOPHEN < 10 ug/mL (10-30); ALCOHOL < 10 mg/dL (NONE DETECTED); SALICYLATE < 1.0 mg/dL (2.0-20.0)
--- NOTE | 2018-11-06 19:27 | EKG REPORT ---
SEVERITY:- NORMAL ECG - SINUS RHYTHM : Confirmed by: Carmen Harrell MD 06-Nov-2018 19:25:56
--- NOTE | 2018-11-06 19:34 | ER Document Report ---
ED General - General Chief Complaint: Psych Problem Stated Complaint: ALTERED MENTAL STATUS Time Seen by Provider: 11/06/18 16:22 Primary Care Provider: GEMMA,SHAWANDA [Primary Care Provider] - Follow up as needed Notes: Patient is a 38-year-old male with history of PTSD, depression, anxiety and substance abuse that presents to the emergency department for chief complaint of hallucinations. Patient states his been having a "mental breakdown", but is not sure, he states he has been seeing objects, initiating conversations with figures that are not there, he denies any drug use recently, states he is currently on medication to help with the cravings. Is a states this is been going on on and off for the past few weeks, denies having them at this time, but he did have them earlier today he states he would to start talking to a chair and it turns into a figure. He denies hearing any voices, denies any suicidal h omicidal ideation at this time. He is on medication for PTSD, depression and anxiety, he is reports that he had a episode like this in the past, but it has been some time. Past Medical History: Anxiety, depression, PTSD, substance abuse disorder Past Surgical History: Denies any recent or pertinent surgical history Social History: Chews tobacco, admits to occasional alcohol use, admits to prior drug abuse Family History: Reviewed and noncontributory for presenting illness Allergies: Reviewed, see documented allergy list. REVIEW OF SYSTEMS: Other than noted above, the 12 point review of systems was reviewed with the patient and were negative, all pertinent findings are included in the HPI. PHYSICAL EXAMINATION: Vital signs reviewed, nursing noted reviewed. GENERAL: Well-appearing, well-nourished and in no acute distress. HEAD: Atraumatic, normocephalic. EYES: Eyes appear normal, extraocular movements intact, sclera anicteric, conjunctiva are normal. ENT: nares patent, oropharynx clear without exudates. Moist mucous membranes. NECK: Normal range of motion, supple without lymphadenopathy LUNGS: Breath sounds clear to auscultation bilaterally and equal. No wheezes rales or rhonchi. HEART: Regular rate and rhythm without murmurs ABDOMEN: Soft, nontender, normoactive bowel sounds. No rebound, guarding, or rigidity. No masses appreciated. EXTREMITIES: Nontender, good range of motion, no pitting or edema. NEUROLOGICAL: No focal neurological deficits. Moves all extremities spontaneously Motor and sensory grossly intact on exam. PSYCH: Bizarre affect, and mood, no agitation, poor eye contact on exam, pressured speech. SKIN: Warm, Dry, normal turgor, no rashes or lesions noted on exposed skin TRAVEL OUTSIDE OF THE [place] IN LAST 30 DAYS: No - Related Data Allergies/Adverse Reactions: No Known Allergies Allergy (Unverified 05/26/16 13:16) Past Medical History - Social History Smoking Status: Current Every Day Smoker Chew tobacco use (# tins/day): No Frequency of alcohol use: Occasional Drug Abuse: None Family History: Reviewed & Not Pertinent Patient has suicidal ideation: No Patient has homicidal ideation: No Renal/ Medical History: Denies: Hx Peritoneal Dialysis Psychiatric Medical History: Reports: Hx Anxiety, Hx Depression, Hx Post Traumatic Stress Disorder Physical Exam - Vital signs Vitals: Temp Pulse Resp BP Pulse Ox 98.7 F 94 20 129/76 H 99 11/06/18 16:21 11/06/18 16:21 11/06/18 16:21 11/06/18 16:21 11/06/18 16:21 Course - Re-evaluation Re-evalutation: Patient seen and examined, vital signs reviewed. Medical screening testing was ordered including bloodwork, EKG, and toxicology. Results of testing were reviewed. Testing demonstrated essentially unremarkable blood testing, mild anemia, which appears to be baseline, urine tox was positive for benzodiazepines. Patient has been stable from a hemodynamic standpoint. At this point I feel that the patient is medically cleared and can be further evaluated from a psychiatric standpoint for final disposition from the emergency department. So the patient's medications were resumed, he is previous on gabapentin, Abilify, prazosin which we do not have in this hospital, and he was also on Lamictal that was resumed. Due to the acute psychosis, I do feel that the patient should be evaluated from the behavioral health team in the morning which the patient was agreeable to. Patient updated on plan of care. Laboratory 11/06/18 11/06/18 11/06/18 16:25 16:25 16:50 WBC 5.2 RBC 3.60 L Hgb 12.6 L Hct 37.6 L MCV 104 H MCH 35.1 H MCHC 33.6 RDW 13.2 Plt Count 199 Seg Neutrophils % 75.4 Lymphocytes % 8.9 L Monocytes % 13.6 H Eosinophils % 1.3 Basophils % 0.8 Absolute Neutrophils 3.9 Absolute Lymphocytes 0.5 Absolute Monocytes 0.7 Absolute Eosinophils 0.1 Absolute Basophils 0.0 Sodium Potassium Chloride Carbon Dioxide Anion Gap BUN Creatinine Est GFR ( Amer) Est GFR (Non-Af Amer) Glucose Calcium Total Bilirubin Direct Bilirubin Neonat Total Bilirubin Neonat Direct Bilirubin Neonat Indirect Bili AST ALT Alkaline Phosphatase Total Protein Albumin Urine Color YELLOW Urine Appearance CLEAR Urine pH 5.0 Ur Specific [place] 1.013 Urine Protein NEGATIVE Urine Glucose (UA) NEGATIVE Urine Ketones 20 H Urine Blood NEGATIVE Urine Nitrite NEGATIVE Urine Bilirubin NEGATIVE Urine Urobilinogen NEGATIVE Ur Leukocyte Esterase NEGATIVE Urine WBC (Auto) 1 Squamous Epi Cells Auto <1 Urine Mucus (Auto) RARE Urine Ascorbic Acid NEGATIVE Salicylates Urine Opiates Screen NEGATIVE Urine Methadone Screen NEGATIVE Acetaminophen Ur Barbiturates Screen NEGATIVE Ur Phencyclidine Scrn NEGATIVE Ur Amphetamines Screen NEGATIVE U Benzodiazepines Scrn UNCONFIRMED POSITIVE Urine Cocaine Screen NEGATIVE U Marijuana (THC) Screen NEGATIVE Serum Alcohol 11/06/18 16:50 WBC RBC Hgb Hct MCV MCH MCHC RDW Plt Count Seg Neutrophils % Lymphocytes % Monocytes % Eosinophils % Basophils % Absolute Neutrophils Absolute Lymphocytes Absolute Monocytes Absolute Eosinophils Absolute Basophils Sodium 141.3 Potassium 4.4 Chloride 106 Carbon Dioxide 23 Anion Gap 12 BUN 9 Creatinine 0.66 Est GFR ( Amer) > 60 Est GFR (Non-Af Amer) > 60 Glucose 77 Calcium 9.4 Total Bilirubin 0.9 Direct Bilirubin 0.4 Neonat Total Bilirubin Not Reportable Neonat Direct Bilirubin Not Reportable Neonat Indirect Bili Not Reportable AST 112 H ALT 42 Alkaline Phosphatase 41 Total Protein 6.7 Albumin 4.1 Urine Color Urine Appearance Urine pH Ur Specific [place] Urine Protein Urine Glucose (UA) Urine Ketones Urine Blood Urine Nitrite Urine Bilirubin Urine Urobilinogen Ur Leukocyte Esterase Urine WBC (Auto) Squamous Epi Cells Auto Urine Mucus (Auto) Urine Ascorbic Acid Salicylates < 1.0 L Urine Opiates Screen Urine Methadone Screen Acetaminophen < 10 L Ur Barbiturates Screen Ur Phencyclidine Scrn Ur Amphetamines Screen U Benzodiazepines Scrn Urine Cocaine Screen U Marijuana (THC) Screen Serum Alcohol < 10 - Vital Signs Vital signs: Temp Pulse Resp BP Pulse Ox 98.7 F 94 20 129/76 H 99 11/06/18 16:21 11/06/18 16:21 11/06/18 16:21 11/06/18 16:21 11/06/18 16:21 - Laboratory Result Diagrams: 11/06/18 16:50 11/06/18 16:50 Laboratory results interpreted by me: 11/06/18 11/06/18 11/06/18 16:25 16:50 16:50 RBC 3.60 L Hgb 12.6 L Hct 37.6 L MCV 104 H MCH 35.1 H Lymphocytes % 8.9 L Monocytes % 13.6 H AST 112 H Urine Ketones 20 H Salicylates < 1.0 L Acetaminophen < 10 L - EKG Interpretation by Me Additional EKG results interpreted by me: EKG demonstrates sinus rhythm with a ventricular rate of 83 bpm, normal axis, normal intervals, no evidence of acute ischemia in this EKG, compared with prior EKG from 10/30/2018, without significant change. Discharge - Discharge Clinical Impression: Hallucinations Condition: Stable Disposition: HOME, SELF-CARE [facility] [[facility] - Follow up as needed
[2018-11-06] MEDS ORDERED: LAMOTRIGINE 100 MG TABLET PO SCH (22:00)
[2018-11-06] MEDS: GABAPENTIN 300 MG CAPSULE PO SCH (22:45)
[2018-11-07] MEDS ORDERED: HALOPERIDOL 5 MG TABLET PO ONE (05:30)
[2018-11-07] MEDS ORDERED: LORAZEPAM 1 MG TABLET PO ONE (05:30)
[2018-11-07] MEDS ORDERED: BENZTROPINE MESYLATE 1 MG TABLET PO ONE ×2 (05:30→18:45)
[2018-11-07] MEDS: GABAPENTIN 300 MG CAPSULE PO SCH ×4 (09:20→22:09)
[2018-11-07] MEDS ORDERED: ZIPRASIDONE HCL 20 MG CAPSULE PO ONE (09:42)
--- NOTE | 2018-11-07 09:42 | ER Document Report ---
Doctor's Note Notes: 11/07/18 09:40 Rounds: He also has a history of PTSD, depression, anxiety, and substance abuse. At this time, patient cannot relay a reliable history. He is talking very nonsensically, flight of ideas, confused. Cannot understand most of what the patient is saying. He is ambulatory. Vital signs are all normal. Lab studies were positive for benzos and his drug screen but otherwise normal. Patient received Ativan, Haldol, and Benadryl earlier this morning and it did nothing for his illness. I am going to give him 20 of Geodon and see if that helps his symptoms. Patient appears to be medically stable for transfer or discharge. Mack Burks MD 11/07/18 12:41 Nurse brought to my attention the patient has an abrasion on his right great toe with some erythema around it. It appears to be dirty with some soft tissue swelling adjacent to the nail. The nail might of had a small area of subungual hematoma. Patient has many small scratches and scrapes all over his body. I am ordering an injection of Rocephin 1 g IM and then will follow that with Keflex. A wound culture has been obtained and sent to the lab. Daily cleansing requested.
[2018-11-07] MEDS ORDERED: ARIPIPRAZOLE 5 MG TABLET PO SCH (10:00)
[2018-11-07] MEDS ORDERED: CEFTRIAXONE INJ 1000 MG VIAL IM ONE (12:35)
[2018-11-07] MEDS ORDERED: LIDOCAINE 1% INJ (10 MG/ML) 10 ML MDV INJ ONE (12:38)
[2018-11-07] MEDS: BENZTROPINE MESYLATE 1 MG TABLET PO SCH (18:09)
[2018-11-07] MEDS: HALOPERIDOL 5 MG TABLET PO SCH (18:09)
[2018-11-07] MEDS: BUSPIRONE HCL 10 MG TABLET PO SCH (18:09)
[2018-11-07] MEDS: LAMOTRIGINE 100 MG TABLET PO SCH (22:09)
--- NOTE | 2018-11-08 07:30 | PSYCHOLOGICAL NOTE ---
Psych Note - Psych Note Date seen by psych provider: 11/07/18 Time seen by psych provider: 07:40 Psych Note: Reason for consult: psychosis Patient's mother, Veronika Patient is a 38-year-old male with history of PTSD, depression, anxiety and substance abuse that presents to the emergency department for chief complaint of hallucinations. [facility]; no beds per AOD [facility]; unsure if beds are available per AOD. Patient's paperwork faxed [facility] has beds. Patient's paperwork faxed [facility] has one male bed. patent's paperwork faxed. Patient denied; did not report reason. Patient is alert but having significant difficulty with orientation; he frequent ly needs to be redirected when walking out of his room and reorientated to place. Mood is manic with flat affect. Significant psychomotor agitation is noted with the patient being unable to sit still, pacing, attempting to take his bed apart and looking behind doors. patient's cognitive functioning is currently impaired with behaviours indicating he is responding to internal stimuli; ie poor eye contact, disorganized thought processes, talking to people not there, etc. Unspecified psychosis; probable alcohol withdrawal delirium Alcohol use disorder per history PTSD per history Medication recommendations per [facility]'s contracted psychiatrist Dr. Erica NAPOLES are as follows: Haldol 5mg three times daily Cogentin 1mg daily Decrease home medication of Buspar to 10mg twice daily Decrease home medication of Lamictal to 200mg every evening Discontinue home medication of abilify Impression/plan: patient is recommended to IVC. Patient is presenting in acute psychosis and delirium. Patient has difficulties with maintaining orientation and is behaviours indicating he is responding to internal stimuli; ie poor eye contact, disorganized thought processes, talking to people not there, etc. Patient has alcohol use disorder and arrived without any alcohol detected in his toxicology screening; indicating probable alcohol withdrawal delirium. There is additional concerns that the patient has been struggling with thoughts of harming himself; per patient's mother, upon arriving into town last night, she found the patient's dress blues laid out on the patient's bed. Patient will be re-evaluated. Dr. Lopes was consulted on the care and management of this patient; attending physician is in agreement with recommendations and disposition.
[2018-11-08] MEDS: HALOPERIDOL 5 MG TABLET PO SCH ×3 (09:05→17:20)
[2018-11-08] MEDS: BUSPIRONE HCL 10 MG TABLET PO SCH ×2 (09:05→17:20)
[2018-11-08] MEDS: GABAPENTIN 300 MG CAPSULE PO SCH ×4 (09:05→21:21)
[2018-11-08] MEDS: BENZTROPINE MESYLATE 1 MG TABLET PO SCH (09:05)
[2018-11-08] MEDS ORDERED: CEFTRIAXONE INJ 1000 MG VIAL IM ONE (09:18)
[2018-11-08] MEDS ORDERED: LIDOCAINE 1% INJ (10 MG/ML) 10 ML MDV INJ ONE (09:18)
--- NOTE | 2018-11-08 09:22 | ER Document Report ---
Doctor's Note Notes: 11/08/18 09:20 Rounds: Chart reviewed and patient interviewed. Patient is much more alert and cooperative and lucid today. Staff commented on how different he is today than yesterday. Carries on a conversation and answers questions appropriately and follows commands. Vital signs are all normal. Lab studies were all un remarkable. Patient's only other problem is the right great toe still appears to be infected. Patient says he stubbed it on an ottoman about 4 5 days ago. I gave him an injection of a gram of Rocephin yesterday and I want to do the same today. I am also getting an x-ray on that toe. Patient appears to be medically stable for transfer or discharge. Mack Burks MD 11/08/18 17:31 Patient's x-ray of his toe reveals a nondisplaced fracture of the proximal portion of the distal phalanx of the great toe. Culture from the great toe is now showing clusters of gram-positive cocci which is probably staph. Patient is to receive the injection of Rocephin. He will need to be on antibiotic when he is discharged. Mack Burks MD 11/08/18 17:34
--- NOTE | 2018-11-08 09:47 | RADIOLOGY REPORT (SQ) ---
EXAM DESCRIPTION: FOOT RIGHT COMPLETE COMPLETED DATE/TIME: 11/08/2018 9:31 am REASON FOR STUDY: injured big toe, abrasion, cellulit COMPARISON: None. NUMBER OF VIEWS: Three-view right foot LIMITATIONS: None. FINDINGS: Nondisplaced intra-articular fracture through the proximal aspect of the distal phalanx of the great toe. Other bones are intact. OTHER: No other significant finding. IMPRESSION: Nondisplaced intra-articular fracture great toe distal phalanx. TECHNICAL DOCUMENTATION: JOB ID: [id number] Reading location - IP/workstation name: [email or web address]
[2018-11-08] MEDS ORDERED: SERTRALINE HCL 50 MG TABLET PO SCH (10:00)
[2018-11-08] MEDS: LAMOTRIGINE 100 MG TABLET PO SCH (21:20)
--- NOTE | 2018-11-09 09:54 | ER Document Report ---
Doctor's Note Notes: 11/09/18 09:53 As the rounding physician this AM, I assessed the patient's labs, vitals, and records. No concerning findings this morning. Patient denies any acute complaints. Patient is cleared for disposition by behavioral health team. Plan is to transfer patient to [facility] as soon as it is available. Patient is agreea ble to this. PHYSICAL EXAMINATION: GENERAL: Well-appearing, well-nourished and in no acute distress. HEAD: Atraumatic, normocephalic. EYES: Pupils equal round extraocular movements intact, conjunctiva are normal. ENT: Nares patent NECK: Normal range of motion LUNGS: No respiratory distress Musculoskeletal: Normal range of motion NEUROLOGICAL: Normal speech, normal gait. PSYCH: Normal mood, normal affect. SKIN: Warm, Dry, normal turgor, no rashes or lesions noted. 11/10/18 10:15
[2018-11-09] MEDS: HALOPERIDOL 5 MG TABLET PO SCH ×3 (10:25→18:40)
[2018-11-09] MEDS: BUSPIRONE HCL 10 MG TABLET PO SCH ×2 (10:25→18:40)
[2018-11-09] MEDS: GABAPENTIN 300 MG CAPSULE PO SCH ×4 (10:25→21:25)
[2018-11-09] MEDS: BENZTROPINE MESYLATE 1 MG TABLET PO SCH (10:25)
[2018-11-09] MEDS: LAMOTRIGINE 100 MG TABLET PO SCH (21:25)
[2018-11-10] MEDS: BENZTROPINE MESYLATE 1 MG TABLET PO SCH (09:10)
[2018-11-10] MEDS: BUSPIRONE HCL 10 MG TABLET PO SCH (09:11)
[2018-11-10] MEDS: GABAPENTIN 300 MG CAPSULE PO SCH (09:11)
[2018-11-10] MEDS: HALOPERIDOL 5 MG TABLET PO SCH (09:12)
[2018-11-10 09:40] VITALS: BP 115/75
--- NOTE | 2018-11-10 12:53 | PSYCHOLOGICAL NOTE ---
Psych Note - Psych Note Date seen by psych provider: 11/08/18 Psych Note: Diagnosis: Unspecified psychosis; probable alcohol withdrawal delirium Alcohol use disorder per history PTSD per history Impression/Plan: Recommendation to maintain IVC. Patient is more alert and oriented today but time frame still off a couple days. Acute psychosis appears to be gone but medications were just adjusted yesterday. He has history of PTSD and TBI coupled with 1-2 weeks of no alcohol use after chronic alcohol use (has multiple DUIs, legal and court involvement). Consulted with Dr. Lopes regarding the management and care of patient. ED Physician in agreement with rec ommendations.
--- NOTE | 2018-11-10 13:09 | PSYCHOLOGICAL NOTE ---
Psych Note - Psych Note Date seen by psych provider: 11/09/18 Psych Note: Diagnosis: Unspecified psychosis; probable alcohol withdrawal delirium Alcohol use disorder per history PTSD per history Impression/Plan: Recommendation to maintain IVC. The [facility] had been reviewing patient since yesterday. There is concern given patient's alcohol use disorder with recent cessation and medical admit for DTs, PTSD and TBI. Patient accepted to [facility].
== END 2018-11-10 09:25 ==
LOC: ER 16:11
DX: F23 Brief psychotic disorder (principal); F43.10 Post-traumatic stress disorder, unspecified; F32.9 Major depressive disorder, single episode, unspecified; F41.9 Anxiety disorder, unspecified; Z79.899 Other long term (current) drug therapy; S92.424A Nondisplaced fracture of distal phalanx of right great toe, initial encounter for closed fracture; W22.03XA Walked into furniture, initial encounter; T14.8XXA Other injury of unspecified body region, initial encounter; X58.XXXA Exposure to other specified factors, initial encounter; D64.9 Anemia, unspecified; F17.200 Nicotine dependence, unspecified, uncomplicated; Z75.1 Person awaiting admission to adequate facility elsewhere
CPT/HCPCS: 93005; 99285; 96372; 36415; 87070; 87205; 80307 ×4; 85025; 87077; 80053; 81001; 87186; 93010; J0696 ×2; J3490 ×4